=== PATIENT | male | born 1950 | race Hispanic/Latino ===

== ENCOUNTER 2017-12-10 08:21 | Emergency (ER) | payer MEDICARE ==
--- NOTE | 2017-12-10 09:10 | ERNOTE ---
ER Male HPI Date of Service: 12/10/17 Stated Complaint: TROUBLE URINATING X4 DAYS Time Seen by Provider: 12/10/17 09:04 Source: patient Exam Limitations: no limitations Immunizations: IMMUNIZATION HX Immunizations Up to Date No History of Influenza Vaccine No Hx Pneumococcal Vaccination No Allergies/Adverse Reactions: Allergies No Known Allergies Allergy (Verified 12/10/17 09:01) Home Medications: HOME MEDICATIONS Sulfamethoxazole/Trimethoprim [Bactrim Ds] 1 tab PO BID 3 Days #6 tab 12/10/17 [ Last Taken Unknown] - History of Present Illness Narrative: Patient has been having trouble urinating for the last 3-4 days. Decreased urination. Now hew cannot urinate. No fever. Has this once before and had to have a dawson for a while. Not sure why that happened in the past. No fever or chills, no vomiting. Discomfort like he cannot urinate. Nothing makes this better or worse. Has not been seen for this problem since it started. Timing: Present: constant, getting worse Quality: Present: moderate Onset Location: Present: suprapubic Radiation: Present: none Activities at Onset: Present: none Prior Abdominal Problems: Present: similar symptoms Modifying Factors - (Improves): Present: other - nothing Modifying Factors - (Worsens): Present: other - nothing Associated Symptoms: Absent: fever/chills, nausea, vomiting, dysuria, urinary frequency, loss of bladder control Prior Treatment: Absent: recently seen Review of Systems - Review of Systems Constitutional: Absent: fever Respiratory: Absent: shortness of breath Cardiology: Absent: chest pain Gastrointestinal/Abdominal: Present: See HPI Genitourinary: Present: See HPI Musculoskeletal: Absent: back pain Skin: Absent: rash Neurological: Absent: weakness - Patient's Past Medical History Patient History - Medical: No pertinent hx Patient History - Cardiac/Respiratory: No pertinent hx Patient History - Cancer: No Hx of Cancer Patient History - Surgical Procedures: No surgical history Patient History - Other: None - Social History Living Situations: home Abuse History: No History of abuse Psych History: No pertinent hx Alcohol Use: none Drug Use: none - Immunizations Immunizations Up to Date: No Hx Pneumococcal Vaccination: No History of Influenza Vaccine: No Physical Exam - Physical Exam General Appearance: Present: alert, no apparent distress Head Exam: Present: normal inspection, no evidence of injury Eye Exam: Normal inspection: bilateral, PERRL: bilateral Ears, Nose, Throat: Present: normal ENT inspection Neck: Present: normal inspection Respiratory: Present: no respiratory distress, normal breath sounds, no accessory muscle use, lungs clear Cardiovascular/Chest: Present: regular rate, rhythm, normal peripheral pulses Gastrointestinal/Abdominal: Present: normal bowel sounds, nontender, soft Back Exam: Absent: CVA tenderness (R), CVA tenderness (L) Extremity Exam: Present: normal inspection Neurological Exam: Present: alert, normal mood/affect, no motor/sensory deficits Skin Exam: Present: normal color, warm/dry ED Progress - Results and Orders Patient's Lab Results:: I have reviewed the patient's lab results. - Vital Signs Patient's Vital Signs:: I have reviewed the patient's vital signs. Vital Signs: Vital Signs 12/10/17 08:58 Temperature 36.7 C Pulse Rate 75 Respiratory 12 Rate Blood Pressure 160/99 O2 Sat by Pulse 97 Oximetry - Progress/Reassessment Chief Complaint: Genitourinary Problem Progress Note-Subjective: 12/10/17 10:03 Sx resolved after Dawson. 1500ml out. No Sx on re-check. 3 days of ABx and leg bag with urology f/u. No other abnormalities on exam here. no suggestion of infection. No other clear acute life threats identified. I discussed warning signs and reasons to return as well as the need for close f/u. Prophylactic 3 d ABx. Departure Clinical Impression: Urinary retention - Departure Disposition: Home self-care Condition: Stable Instructions: Dawson Catheter Care, Adult Additional Instructions: Rest. Follow-up with Urology this week, call for an appointment. Return for fever, vomiting, abdominal pain, trouble with Dawson or if your condition worsens or changes in any way. Referrals: David Velazquez MD [Associate] - Prescriptions: Sulfamethoxazole/Trimethoprim [Bactrim Ds] 1 tab PO BID 3 Days #6 tab
[2017-12-10 09:58] LABS: Urine Appearance Slightly Cloudy; Urine Bacteria TRACE; Urine Bilirubin Negative (NEGATIVE); Urine Blood 250 /ul (NEGATIVE); Urine Color Yellow; Urine Ketone Negative (NEGATIVE); Urine Nitrite Negative (NEGATIVE); Urine Protein Negative (NEGATIVE); Urine Urobilinogen Normal (NORMAL); Urine WBC TRACE /hpf (0-5); Urine pH 5.5 pH (5.0-7.0)
[2017-12-10 10:03] VITALS: BP 132/80
== END 2017-12-10 10:14 | disposition home or self-care (01) ==
LOC: ER 08:21
PROC: 0T9B70Z Drainage of Bladder with Drainage Device, Via Natural or Artificial Opening (ICD-10-PCS; principal; 2017-12-10)
DX: R33.9 Retention of urine, unspecified (principal)

== ENCOUNTER 2017-12-21 05:40 | Emergency (ER) | payer MEDICARE ==
--- NOTE | 2017-12-21 06:12 | ERNOTE ---
<Eric Moyer - Last Filed: 12/21/17 07:56> ER Male HPI Stated Complaint: CATH ISSUES ER Male: urinary retention Time Seen by Provider: 12/21/17 05:59 Source: patient Exam Limitations: no limitations Immunizations: IMMUNIZATION HX Immunizations Up to Date No History of Influenza Vaccine No Hx Pneumococcal Vaccination No Allergies/Adverse Reactions: Allergies No Known Allergies Allergy (Verified 12/10/17 09:01) Home Medications: HOME MEDICATIONS Ascorbic Acid [Vitamin C] 1,000 mg PO DAILY 12/21/17 [Last Taken Unknown] Ciprofloxacin HCl [Cipro] 500 mg PO BID #20 tab 12/21/17 [Last Taken Unknown] Multivitamin [One Daily Multivitamin] 1 each PO DAILY 12/21/17 [Last Taken Unknown] Saw [place] 160 mg PO DAILY 12/21/17 [Last Taken Unknown] Vitamin E 1,000 unit PO DAILY 12/21/17 [Last Taken Unknown] - History of Present Illness Narrative: Pt states that he was walking home last night and a neighbors dog jumped up on him and caught his catheter with his paws. The patient thought that he was alright but throughout the night he has noticed that his catheter is not draining and that he is getting a little bit of blood in the tube. Timing: Present: getting worse Quality: Present: moderate, severe Onset Location: Present: suprapubic Associated Symptoms: Present: abdominal pain. Absent: fever/chills, nausea, vomiting Review of Systems - Review of Systems Constitutional: Absent: recent illness EYE: Present: no symptoms reported ENT: Present: no symptoms reported Gastrointestinal/Abdominal: Absent: nausea, vomiting Genitourinary: Present: decreased urinary output Musculoskeletal: Present: no symptoms reported Skin: Absent: rash, lesions Neurological: Present: no symptoms reported Endocrine: Present: no symptoms reported - Patient's Past Medical History Patient History - Medical: Other Patient History - Cardiac/Respiratory: No pertinent hx Patient History - Cancer: No Hx of Cancer Patient History - Surgical Procedures: No surgical history Patient History - Other: None - Social History Living Situations: alone Abuse History: No History of abuse Psych History: No pertinent hx Smoking Status: Current every day smoker Have you smoked in the past 12 months: Yes Do you dip or chew tobacco: No Alcohol Use: rarely Drug Use: none - Immunizations Immunizations Up to Date: No Hx Pneumococcal Vaccination: No History of Influenza Vaccine: No Physical Exam - Physical Exam General Appearance: Present: wd/wn, alert, no apparent distress Head Exam: Present: normal inspection, no evidence of injury Respiratory: Present: no respiratory distress, no accessory muscle use Gastrointestinal/Abdominal: Present: tenderness, distended - suprapubic. Absent : guarding, rebound Male Genitals Exam: Present: bleeding - slight around the catheter Extremity Exam: Present: normal inspection, normal range of motion Neurological Exam: Present: alert, oriented, normal mood/affect ED Progress - Vital Signs Vital Signs: Vital Signs 12/21/17 05:43 Temperature 37.1 C Pulse Rate 82 Respiratory 16 Rate Blood Pressure 137/94 O2 Sat by Pulse 99 Oximetry - Progress/Reassessment Chief Complaint: Genitourinary Problem Progress Note-Subjective: 12/21/17 07:05 Catheter was removed and was only partially in. New catheter was attempted to be inserted and resistance was encountered another gentle attempt was made again without success. Attempt was aborted. Urology is here in speciality clinic today. We will contact urology after 08:00 and ask if they will see him here or in the clinic. - Transfer of Care Physician Sign Out: Eric Moyer Receiving Physician: Bryant Gibson Pending Results: Physician/consult arrival Expected Disposition: Discharge Departure Clinical Impression: Urinary obstruction, Urinary retention - Departure Disposition: Home Follow Up Needed Condition: Good Instructions: Acute Urinary Retention, Male, [id number] Prescriptions: Ciprofloxacin HCl [Cipro] 500 mg PO BID #20 tab <Bryant Gibson - Last Filed: 12/21/17 10:05> ER Male HPI Date of Service: 12/21/17 Immunizations: IMMUNIZATION HX Immunizations Up to Date No History of Influenza Vaccine No Hx Pneumococcal Vaccination No Review of Systems - Review of Systems Constitutional: Present: See HPI Respiratory: Present: no symptoms reported Cardiology: Present: no symptoms reported Gastrointestinal/Abdominal: Present: no symptoms reported Genitourinary: Present: no symptoms reported Hematologic/Lymphatic: Present: no symptoms reported All Other Systems: All systems neg except as marked - Narrative Narrative: unremarkable - Family History Family History:: no untoward family reactions to anesthesia, no familial bleeding tendencies, no family history of clotting disorders, no family history of premature - Social History Does anyone smoke in the home?: No Patient requests Smoking Cessation Consult: No Initiate information on Smoking Cessation: No Physical Exam - Physical Exam Eye Exam: Normal inspection: bilateral, PERRL: bilateral, EOMI: bilateral Ears, Nose, Throat: Present: normal ENT inspection Neck: Present: normal inspection, nontender Cardiovascular/Chest: Present: regular rate, rhythm, no murmur, normal peripheral pulses Peripheral Pulses: N=norm/S=strong/W=weak/B=bound/A=absent: Carotid (R): Normal , Carotid (L): Normal, Radial (R): Normal, Radial (L): Normal, Femoral (R): Normal, Femoral (L): Normal, Dorsalis-pedis (R): Normal, Dorsalis-pedis (L): Normal Gastrointestinal/Abdominal: Present: normal bowel sounds, nontender Male Genitals Exam: Present: normal genitalia, normal prostate Back Exam: Present: normal inspection, normal range of motion, no CVA tenderness , no vertebral tenderness Skin Exam: Present: normal color, warm/dry Lymphatic Exam: Present: no adenopathy ED Progress - Date and Time Seen: Date and Time: 12/21/17 10:00 urinary retention relieved , patient to be discharged f/u with urology - Vital Signs Patient's Vital Signs:: I have reviewed the patient's vital signs. Vital Signs: Vital Signs 12/21/17 12/21/17 12/21/17 05:43 06:36 07:18 Temperature 37.1 C Pulse Rate 82 84 66 Respiratory 16 12 14 Rate Blood Pressure 137/94 136/92 119/76 O2 Sat by Pulse 99 93 Oximetry 12/21/17 12/21/17 12/21/17 07:47 08:17 08:47 Temperature Pulse Rate 64 57 L 61 Respiratory 12 14 15 Rate Blood Pressure 126/80 100/65 86/54 O2 Sat by Pulse 95 93 98 Oximetry 12/21/17 09:31 Temperature Pulse Rate 69 Respiratory 12 Rate Blood Pressure 126/78 O2 Sat by Pulse 96 Oximetry Plan - Plan Plan: to erin discharged
[2017-12-21] MEDS ORDERED: ONDANSETRON HCL/PF 2 MG/ML VIAL ONE (07:02)
[2017-12-21] MEDS ORDERED: MORPHINE SULFATE 2 MG/ML DISP.SYRIN ONE (07:02)
[2017-12-21] MEDS: MORPHINE SULFATE 2 MG/ML DISP.SYRIN IV ONE (07:09)
[2017-12-21] MEDS: ONDANSETRON HCL/PF 2 MG/ML VIAL IV ONE (07:13)
[2017-12-21 09:32] VITALS: BP 126/78
== END 2017-12-21 10:24 | disposition home or self-care (01) ==
LOC: ER 05:40
PROC: BT20ZZZ Computerized Tomography (CT Scan) of Bladder (ICD-10-PCS; principal; 2017-12-21)
PROC: 0T9B70Z Drainage of Bladder with Drainage Device, Via Natural or Artificial Opening (ICD-10-PCS; 2017-12-21)
DX: R33.9 Retention of urine, unspecified; N13.9 Obstructive and reflux uropathy, unspecified; F17.200 Nicotine dependence, unspecified, uncomplicated
CPT/HCPCS: 51702; 51798; 96374; 96375; 99284; J2405